=== PATIENT | male | born 1960 | race Caucasian/White ===

== ENCOUNTER 2017-11-25 11:52 | Observation (INO) | payer MEDICARE, SELFPAY ==
[2017-11-25 12:05] VITALS: O2SAT 93
[2017-11-25 12:12] VITALS: BMI 38.3
[2017-11-25 12:13] VITALS: BP 146/86; PULSE 102; RESP 20; TEMP 37.2; O2SAT 93
--- NOTE | 2017-11-25 12:29 | CT_ITS ---
CT chest w con Ordering Physician: Lamin Lynn MD Patient Age: 57 years: Male HISTORY: ITS.REASON: axillary lymphadentis. Cough. Congestion. Left facial swelling anterior to the ear. TECHNIQUE: Helical CT scanning performed the chest following following 50 cc of contrast for the neck CT subsequent 50 cc Isovue 370 for the chest portion of today's study. Sagittal axial coronal CT reconstructions performed on CT workstation. COMPARISON :Recent chest film 05/16/2017 Previously abdomen which included lung bases February 2016 FINDINGS The patient's large size and motility raise arms yield streak artifact which diminishes the resolution The lungs are well expanded and clear with no focal pneumonia. Borderline-mild central airway thickening. Question mild chronic or active bronchitis. . Tiny 3.7 mm partially calcified nodule at the periphery of the right lower lobe granuloma. Not of concern. Mediastinum. Heart is normal in size. Aorta normal caliber. . Hilar regions appear satisfactory. No hilar adenopathy. Grouping of modest size nodes seen just above the left bronchus, left paratracheal region & towards the AP window. None of these appears to be significantly enlarged. One of the larger nodes measuring 12 mm x 7 mm size. Nonspecific at the right peritracheal region there is a 12 mm x 17 mm no x 18 mm length. Generous wall thickness throughout distal esophagus noted. Requires correlation. Any symptoms here. Good appears similar to 2016 study with only suggestion of slight progression... . Upper abdomen demonstrates fatty changes of liver. Cholecystectomy. Vague 12 mm low-density left adrenal nodule most likely nonfunctioning adenoma. Vs volume averaging. Not of concern either case . No significant axillary adenopathy evident by CT. Attention to the left axilla mild gynecomastia bilaterally. Minimal linear scarring anteriorly lingula is stable ====. IMPRESSION: = 1. No acute pulmonary findings . No focal pneumonia. No CHF. 2. Scattered small & moderate nodes at throughout mediastinum. Most likely reactive nodes. Doubtful significance 3.. . Borderline wall thickening of central airways question minor bronchitis. 4. Diffuse wall thickening esophagus most evident distally. .. Similar to 2016 with perhaps very slight progression. Any relevant symptoms here?.Requires correlation 5. Mild bilateral gynecomastia. No significant axillary adenopathy
--- NOTE | 2017-11-25 12:30 | CT_ITS ---
CT soft tissue neck w con Ordering Physician: Lamin Lynn MD Patient Age: 57 years: Male HISTORY: ITS.REASON: ? mastoiditis/neck lymphadenitis TECHNIQUE: Helical CT scanning performed through the neck following 50 cc Isovue-370 cc, with subsequent CT scanning through the chest following additional 50 cc. Sagittal and coronal and axial reconstruction views of the neck performed on CT workstation. COMPARISON :CT IACs/mastoids June 2010 FINDINGS . Benign finding on today's study is edema in the subcutaneous/more superficial fatty tissue most evident just anterior to left ear but then continuing extending just beneath the skin overlying the left parotid and continuing below the left parotid. The parotid glands generous in size bilaterally with the left slightly larger and more lobulated the right. However the prior films are helpful and supportive that this film like extension of parotid tissue upward and just anterior to the ear left greater the right is a long-standing finding feature.; As is a thumb likely extension of parotid tissue anterior overlying the left masseter along the parotid duct. I see no stones along the course of the left parotid gland nor unusual additional inflammation of the parotid gland itself. There may be very slightly more edematous but this is equivocal at best. Majority of the findings seen in the BX cellulitis in the more superficial soft tissues anterior to the ear. Focal swelling most evident here. This overlies the superficial veins Continuing into the neck there are scattered moderate nodes which are similar to previous studies.. These are only slightly more evident on the left with no prominent worrisome or suspicious note or adenopathy. Moderate sized the submandibular glands again noted and stable. Scattered nodes towards the base the neck observed,. However again no worrisome or suspicious individual node. Apices of lungs clear. Medial course of the first ribs yields a slightly tight appearing thoracic inlet Degenerative disc changes and cervical spondylosis most evident at C5-C6 & C6/7. Posterior spurring hypertrophic ridging is seen at both of these levels narrowing the central canal and encroaching upon the foramen typically at C5-C6 to the left. The chronic extensive paranasal sinuses disease or be discussed in the mastoid CT report IMPRESSION--------- 1. Edema of superficial subcutaneous fat layers left face, -most most pronounced immediate anterior to left ear. Diminishing subcutaneous edema been seen extending downward from here, overlying left parotid gland and continuing just inferior to this. 2.... On CT this superficial edema most likely reflects some form of localized superficial Cellulitis Type Process. It appears to yield focal soft tissue swelling here.-Which is most pronounced just anterior to left ear 3 CT mastoids from 2010 very helpful.-. & Confirms that somewhat lobulated contour of generous size left parotid is a stable feature. Specifically Note thumb-like anterior extension of left parotid gland along left parotid duct (overlying left masseter),... As well as superior thumb like extension of left parotid gland just anterior to ear. These are noted as they may be palpable asymmetric features clinically... & Not related to enlarged nodes No prominent lymphadenopathy. No dominant, nor suprative nodes left neck . only question subtle additional enlargement a few of previously long-standing moderate size left nodes throughout the left neck. Overall nodes pattern upper neck very similar to 2010 exam.
--- NOTE | 2017-11-25 12:31 | CT_ITS ---
CT mastoid W/O Ordering Physician: Lamin Lynn MD Patient Age: 57 years: Male HISTORY: ITS.REASON: ? left mastoiditisredness right and left TMJ region. Worse in the left with bulging. Periarticular swelling with redness and tenderness in significant mastoid pain. TECHNIQUE: Helical CT scanning performed through the paranasal sinuses with sagittal and coronal reconstructions on CT workstation. COMPARISON :CT mastoids June 2010 very helpful FINDINGS Previous RIGHT MASTOIDECTOMY.. No significant new findings here versus 2010 2 cm ill-defined Soft tissue density fills the right mastoidectomy defect. Minimal postsurgical bone fragments here-fairly stable feature since 2009. No additional erosive changes nor evidence acute infection..... However fairly Confluent soft tissue density from mastoidectomy defect then continues medially - filling, & opacifying the majority right middle ear.. Expands this region slightly. No ossicles evident. No. Soft tissue density then likely extends this region along course of right eustachian tube region..( Axial Image 34). progression of findings versus 2009 . LEFT MASTOID. Decreased pneumatization of left mastoid with only few residual left mastoid air cells evident. Sclerosis throughout the majority left mastoid region may reflect old mastoiditis. . soft tissue density seen at the attic of left middle air extending into the mastoid antrum. This is seen previously but with slight progression Since 2009. .. The inferior portion of the middle air appears clear.. However I do not ossicles. The bony scutum remains stable-slightly blunted but intact on the left. No fluid levels or prominent acute findings left middle air. No destructive changes ... Left and right before meals appear intact ===== . Extensive Paranasal Sinus Disease again noted and has shown mild progression since 2009: These appear to be chronic changes. No air-fluid levels Right Maxillary sinus.: generous lobulated mucosal thickening most evident towards floor right maxillary sinus Left Maxillary Sinus:. moderate lobulated mucosal thickening most evident towards floor the left. Appears to be a 16 mm polyp polypoid which is developed spur medial wall left maxillary sinus. Ethmoid air cells. Opacification of majority of ethmoid air cells bilaterally again noted is shown progression superior at the posterior left ethmoid air cells Moderate mucosal thickening right sphenoid sinus more so than left. Slight progression here as well Frontal sinus. Well-developed with mild mucosal thickening becoming more pronounced towards junction with ethmoid air cells. Slight overall improvement of left maxillary sinus. No significant air-fluid levels are seen =IMPRESSION == 1. no prominent acute findings involving mastoids nor paranasal sinuses . No destructive nor erosive changes. No air-fluid levels. 2. Right mastoidectomy. Soft tissue density and debris-filled the mastoidectomy defect and continue to the majority of the right middle air. Findings here are similar to 2010. No significant progression. No acute findings.. 3.. Left mastoid. No prominent nor acute findings. Chronic changes again evident with only Slight progression of soft tissue density at the attic of the left middle air and and left mastoid antrum region.. 4.. Pansinusitis. Slight progression since previous studies but no air-fluid levels or acute features
[2017-11-25 12:45] LABS: Basophils % 0.4 % (0.1-2.0); Eosinophils % 0.4 % (0.1-12.0); Hematocrit 50.7 % (42.0-52.0); Hemoglobin 17.2 g/dL (14.1-18.0); Lymphocytes # 0.9 K/mm3 (0.7-4.5); Lymphocytes % 14.3 K/mm3 (10-50); Mean Corpuscular HGB Conc 33.9 g/dL (31.8-35.4); Mean Corpuscular Hemoglobin 32.7 pg (27.0-31.2); Mean Corpuscular Volume 96.7 fl (80-94); Mean Platelet Volume 9.2 fl (7.4-10.4); Monocytes # 0.4 K/mm3 (0.1-1.0); Monocytes % 6.7 % (1.7-9.3); Neutrophils # 4.9 K/mm3 (1.8-7.8); Neutrophils % 78.2 % (37.0-80.0); Platelet Count 197 K/mm3 (142-424); Red Blood Count 5.25 M/mm3 (4.60-6.20); Red Cell Distribution Width 13.1 % (11.5-17.5); White Blood Count 6.3 K/mm3 (4.8-10.8)
[2017-11-25 12:51] LABS: Alanine Aminotransferase 25 U/L (12-78); Albumin Level 3.2 gm/dL (3.4-5.0); Albumin/Globulin Ratio 0.7 (1.1-1.8); Alkaline Phosphatase 74 U/L (46-116); Aspartate Amino Transferase 16 U/L (15-37); Bilirubin,Total 0.7 mg/dL (0.2-1.0); Blood Urea Nitrogen 14 mg/dL (7-18); Calcium 8.9 mg/dL (8.5-10.1); Carbon Dioxide 34 mmol/L (21.0-32.0); Chloride 98 mmol/L (98-107); Creatinine Clearance Estimated 151 mL/min (0-300); Creatinine,Serum 0.95 mg/dL (0.70-1.30); Estimated Glomerular Filt Rate 82 ml/min (>60); GFR (African American) 99 ML/MIN (>60); Globulin 4.3 gm/dl (1.3-3.2); Glucose 132 mg/dL (74-106); Sodium 137 mmol/L (136-145); Total Protein,Serum 7.5 gm/dL (6.4-8.2)
--- NOTE | 2017-11-25 12:53 | PC.NURSE ---
Pt reports sm watery BM. Pt ambulated to BR unassisted with slow steady gait.
--- NOTE | 2017-11-25 13:10 | HMH.PHAVTE ---
[facility] Pharmacy VTE Monitoring - Patient Demographics Admission date: 11/25/17 Report Date: 11/25/17 Time: 13:10 Allergies/Adverse Reactions: Patient Allergies amoxicillin [AMOXICILLIN] Allergy (Severe, Verified 11/25/17 12:49) FACIAL SWELLING Penicillins Allergy (Severe, Verified 11/25/17 12:49) Swelling of Lip/Tongue/Throat ondansetron [From ZOFRAN ( HYDROCHLORIDE)] Allergy (Mild, Verified 11/25/17 12:49) RASH, ITCHING Height: 1.8 m Weight: 124.738 kg - VTE Risk Labs: VTE Related Lab Results Hgb 17.2 g/dL (14.1-18.0) 11/25/17 Unknown Hct 50.7 % (42.0-52.0) 11/25/17 Unknown Plt Count 197 K/mm3 (142-424) 11/25/17 Unknown BUN 14 mg/dL (7-18) 11/25/17 Unknown Creatinine 0.95 mg/dL (0.70-1.30) 11/25/17 Unknown Estimated Creat Clear 151 mL/min (0-300) 11/25/17 Unknown Was VTE Risk Assessment Performed: Yes VTE Score: 4 VTE Risk Level: Low Risk - Prophylaxis VTE Prophylaxis Ordered?: Yes Types of VTE Prophylaxis: TEDS Knee High Location of Applied Device: Bilateral Lower Extremeties
--- NOTE | 2017-11-25 14:37 | PC.NURSE ---
Med reconciliation completed. Meds locked up in drawer.
--- NOTE | 2017-11-25 15:16 | PC.NURSE ---
Pt transported off floor via WC to radiology for CT scans.
--- NOTE | 2017-11-25 15:44 | PC.NURSE ---
pt off unit at this time.
--- NOTE | 2017-11-25 15:48 | PC.NURSE ---
11/25/17 @ 1201 - pt arrived to room 211 via wc accompanied by his . Pt is A&Ox3. VSS. Afebrile. Heart rate reg. Breath sounds /c rhonchi noted throughout. Abd soft and non-tender /c active BS x4 quads. Will continue to monitor current status.
--- NOTE | 2017-11-25 16:57 | PC.NURSE ---
1613 - Received report from Susie Villalta RN. 1625 - Pt returned to room 212 via bed accompanied by post-op nurses. Pt A&Ox3 in NAD. VSS. Afebrile. O2 sats on RA 96%. Heart rate reg. Lungs CTA. Abd soft, non-tender /c active BS x4 quads. Pt taking PO fluids /s difficulty. No c/o N/V. (L)AC IV infusing /s difficulty. No s/s of infiltration. Pt denies and c/o at this time. Will continue to monitor.
--- NOTE | 2017-11-25 17:10 | HMH.HP ---
*Admission Date: 11/25/17 *History of present illness: 57-year-old white male with history of mastoiditis in the past, with chronic morbid obesity, chronic immobility issues and chronic pain syndrome, who presented to my office today with a chief complaint of multiple issues, including severe left ear pain, swelling around his face, diminished urine output and swelling in his arms. He was found to be febrile, tachycardic have significant soft tissue swelling around the left auricle, with left mastoid tenderness and cervical lymphadenitis and significant axillary lymphadenitis. Given his evidence of metabolic stress with tachycardia and reduced urine output he was admitted to hospital for IV antibiotics, CT scanning of the affected area and monitoring of lab studies. [facility] History I have reviewed the patient's past medical history: Yes Medical History: Reports:: Hyperlipidemia, Hypertension, Nephritis (Episode of renal failure requiring hospitalization last summer) Denies:: Cancer, Diabetes Mellitus Type 1, Diabetes Mellitus Type 2, MRSA Other Medical History: Reports: Arthritis Laterality Cases: Bilateral: Arthroscopy Knee, Arthroscopy Shoulder, Myringotomy (Ear Tubes), Tonsillectomy Other Surgeries: Yes: Colonoscopy, EGD Amputation: No Fractures: No - *Social History Educational Level: Completed Grade School Smoking Status: Current every day smoker Tobacco Type: cigarettes # Packs/Day (cigarettes): 1 Alcohol Intake: current Alcohol Intake Frequency:: holidays/special occasions only Occupational Status: disabled Housing: house Household Members: spouse, family - Psychiatric History Expresses thoughts of harming self/others: None Suicide Plan Description: No Plan *Family Hx:: Coronary Artery Disease, Diabetes, Hypertension, Stroke Review of Systems - Review of Systems Review of systems:: unable to obtain, other, pertinent systems reviewed and negative unless documented below - Constitutional Reports body ache(s), Reports chills, Reports excessive sweating, Reports fever(s), Reports headache(s) - Eyes Denies blind spots, Denies blurry vision, Denies change in vision - ENT Denies bleeding gums - *Cardiovascular Denies chest pain, Denies chest pain at rest, Denies chest pain with activity - *Respiratory Reports chest congestion, Reports cough, Denies change in phlegm color - *Gastrointestinal Reports abdominal pain, Reports belching - *Genitourinary Reports difficulty urinating - *Musculoskeletal Reports abnormal walking, Reports joint pain - *Neurologic Reports abnormal walking Meds Home Medications Medication Instructions Recorded Confirmed Type Allopurinol [Allopurinol 300mg 300 mg PO DAILY 11/25/17 11/25/17 History tablet] Budesonide/Formoterol Fumarate 10.2 gm IH BID 11/25/17 11/25/17 History [Symbicort 80-4.5 Mcg Inhaler] Duloxetine HCl [Cymbalta 30mg 30 mg PO BID 11/25/17 11/25/17 History capsule] Lansoprazole [Lansoprazole] 30 mg PO DAILY 11/25/17 11/25/17 History Lisinopril/Hydrochlorothiazide 10 - 12.5 mg PO DAILY 11/25/17 11/25/17 History [Lisinopril-Hctz 10-12.5 mg Tab] Meloxicam 15 mg PO DAILY 11/25/17 11/25/17 History Metoclopramide HCl [Metoclopramide 10 mg PO QID 11/25/17 11/25/17 History 10mg Tablet] Pregabalin [Lyrica 150mg Cap] 150 mg PO TID 11/25/17 11/25/17 History Ropinirole HCl 0.5 mg PO TID 11/25/17 11/25/17 History Sucralfate [Sucralfate 1gm 1 gm PO BID 11/25/17 11/25/17 History Tab] Allergies Allergy/AdvReac Type Severity Reaction Status Date / Time amoxicillin [AMOXICILLIN] Allergy Severe FACIAL Verified 11/25/17 12:49 SWELLING ondansetron Allergy Mild RASH, Verified 11/25/17 12:49 [From ZOFRAN ( ITCHING HYDROCHLORIDE)] Penicillins Allergy Mild Hives Verified 11/25/17 14:22 Exam Vital signs and Labs for Last 24 Hours: Temp Pulse Resp BP Pulse Ox 99.0 F 102 H 20 146/86 93 L 11/25/17 12:13 11/25/17 12:13 0
--- NOTE | 2017-11-25 17:13 | P.HP_ITS ---
*Admission Date: 11/25/17 *History of present illness: 57-year-old white male with history of mastoiditis in the past, with chronic morbid obesity, chronic immobility issues and chronic pain syndrome, who presented to my office today with a chief complaint of multiple issues, including severe left ear pain, swelling around his face, diminished urine output and swelling in his arms. He was found to be febrile, tachycardic have significant soft tissue swelling around the left auricle, with left mastoid tenderness and cervical lymphadenitis and significant axillary lymphadenitis. Given his evidence of metabolic stress with tachycardia and reduced urine output he was admitted to hospital for IV antibiotics, CT scanning of the affected area and monitoring of lab studies. [facility] History I have reviewed the patient's past medical history: Yes Medical History: Reports:: Hyperlipidemia, Hypertension, Nephritis (Episode of renal failure requiring hospitalization last summer) Denies:: Cancer, Diabetes Mellitus Type 1, Diabetes Mellitus Type 2, MRSA Other Medical History: Reports: Arthritis Laterality Cases: Bilateral: Arthroscopy Knee, Arthroscopy Shoulder, Myringotomy (Ear Tubes), Tonsillectomy Other Surgeries: Yes: Colonoscopy, EGD Amputation: No Fractures: No - *Social History Educational Level: Completed Grade School Smoking Status: Current every day smoker Tobacco Type: cigarettes # Packs/Day (cigarettes): 1 Alcohol Intake: current Alcohol Intake Frequency:: holidays/special occasions only Occupational Status: disabled Housing: house Household Members: spouse, family - Psychiatric History Expresses thoughts of harming self/others: None Suicide Plan Description: No Plan *Family Hx:: Coronary Artery Disease, Diabetes, Hypertension, Stroke Review of Systems - Review of Systems Review of systems:: unable to obtain, other, pertinent systems reviewed and negative unless documented below - Constitutional Reports body ache(s), Reports chills, Reports excessive sweating, Reports fever( s), Reports headache(s) - Eyes Denies blind spots, Denies blurry vision, Denies change in vision - ENT Denies bleeding gums - *Cardiovascular Denies chest pain, Denies chest pain at rest, Denies chest pain with activity - *Respiratory Reports chest congestion, Reports cough, Denies change in phlegm color - *Gastrointestinal Reports abdominal pain, Reports belching - *Genitourinary Reports difficulty urinating - *Musculoskeletal Reports abnormal walking, Reports joint pain - *Neurologic Reports abnormal walking Meds Home Medications Medication Instructions Recorded Confirmed Type Allopurinol [Allopurinol 300mg 300 mg PO DAILY 11/25/17 11/25/17 History tablet] Budesonide/Formoterol Fumarate 10.2 gm IH BID 11/25/17 11/25/17 History [Symbicort 80-4.5 Mcg Inhaler] Duloxetine HCl [Cymbalta 30mg 30 mg PO BID 11/25/17 11/25/17 History capsule] Lansoprazole [Lansoprazole] 30 mg PO DAILY 11/25/17 11/25/17 History Lisinopril/Hydrochlorothiazide 10 - 12.5 mg PO DAILY 11/25/17 11/25/17 History [Lisinopril-Hctz 10-12.5 mg Tab] Meloxicam 15 mg PO DAILY 11/25/17 11/25/17 History Metoclopramide HCl [Metoclopramide 10 mg PO QID 11/25/17 11/25/17 History 10mg Tablet] Pregabalin [Lyrica 150mg Cap] 150 mg PO TID 11/25/17 11/25/17 History Ropinirole HCl 0.5 mg PO TID 11/25/17 11/25/17 History Sucralfate [Sucralfate 1gm 1 gm PO BID 11/25/17 11/25/17 History
--- NOTE | 2017-11-25 18:59 | PC.NURSE ---
Report given to Yenni Talbert RN
[2017-11-25 20:00] VITALS: BP 140/97; PULSE 92; RESP 20; TEMP 36.9; O2SAT 94
--- NOTE | 2017-11-26 03:57 | PC.NURSE ---
Laying in bed resting, Has complained of headache this shift. Has had tylenol 2 x. Left side of face is slightly swollen around ear. No change from Beginning of shift. Denies any trouble breathing. Lungs have some Rhonchi bilat. Resp even and nonlabored. Has been up to restroom several times. Has Tolerated well. IV is patent, denies any needs at this time. Bed locked in low position, side rails up x 2, call light within reach. Encouraged to call out if needs.
[2017-11-26 04:00] VITALS: BP 130/95; PULSE 80; RESP 20; TEMP 36.6; O2SAT 95
[2017-11-26 07:35] VITALS: BP 140/91; PULSE 80; RESP 22; TEMP 37.8; O2SAT 95
--- NOTE | 2017-11-26 07:35 | PC.NURSE ---
Report received from Yenni Talbert RN.
--- NOTE | 2017-11-26 07:51 | HMH.NBDC ---
[place] Subjective Data - Subjective Height: 5 ft 11 in Weight: 277 lb 3 oz [facility] DC Diagnosis - Discharge Diagnosis Patient Problems: All Active Problems Lymphadenitis (Acute) Acute febrile illness (Acute)
--- NOTE | 2017-11-26 07:54 | P.DS_ITS ---
[place] Subjective Data - Subjective Height: 5 ft 11 in Weight: 277 lb 3 oz [facility] DC Diagnosis - Discharge Diagnosis Patient Problems: All Active Problems Lymphadenitis (Acute) Acute febrile illness (Acute)
--- NOTE | 2017-11-26 08:55 | HMH.ACPN2 ---
Internal Medicine - PN: Subj *Date: 11/26/17 *Time: 07:45 Interval history: Patient is sleeping deeply this morning and does not want to wake up to participate in rounds. Once awake, he denies any pain. Continues to have some tenderness around left ear. States I don't like the food. Otherwise no complaints. Alert and oriented x3. Rate and rhythm regular. Mild swelling and erythema around left ear extending approx 2 cm. Moderately tender, + LAD left cervical, improved. LS clear and equal Exam Vital signs and Labs for Last 24 Hours: Temp Pulse Resp BP Pulse Ox 100.1 F H 80 22 140/91 95 11/26/17 07:35 11/26/17 07:35 11/26/17 07:35 11/26/17 07:35 11/26/17 07:35 Laboratory Results - last 24 hr 11/25/17 : WBC 6.3, RBC 5.25, Hgb 17.2, Hct 50.7, MCV 96.7 H, MCH 32.7 H, MCHC 33.9, RDW 13.1, Plt Count 197, MPV 9.2, Neut % (Auto) 78.2, Lymph % (Auto) 14.3, [place] % (Auto) 6.7, Eos % (Auto) 0.4, Baso % (Auto) 0.4, Neut # (Auto) 4.9, Lymph # (Auto) 0.9, [place] # (Auto) 0.4, Eos # (Auto) 0.0, Baso # (Auto) 0.0 11/25/17 : Sodium 137, Potassium 4.0, Chloride 98, Carbon Dioxide 34 H, Anion Gap 9.0, BUN 14, Creatinine 0.95, Estimated Creat Clear 151, Estimated GFR 82, Est GFR ( Amer) 99, Glucose 132 H, Calcium 8.9, Total Bilirubin 0.7, AST 16, ALT 25, Alkaline Phosphatase 74, Total Protein 7.5, Albumin 3.2 L, Globulin 4.3 H, Albumin/Globulin Ratio 0.7 L I & O for Last 24 hours: Intake & Output 11/23/17 11/24/17 11/25/17 11/26/17 11:59 11:59 11:59 11:59 Intake Total 1703 / 1703 Output Total 600 / 600 Balance 1103 / 1103 Weight 277 lb 3 oz Assessment and Plan (1) Lymphadenitis Current visit: Yes Status: Acute Category: Medical Code(s): I88.9 - Nonspecific lymphadenitis, unspecified (2) Acute febrile illness Current visit: Yes Status: Acute Category: Medical Code(s): R50.9 - Fever, unspecified - Assessment and plan all Dx Assessment and Plan for all problems:: BC negative to date. CT showed soft tissue swelling, no acute invasion of nay structures. Apply warm compresses TID. Continue IV antibiotics. Patient needs to get OOB to chair today.
--- NOTE | 2017-11-26 09:00 | P.PN_ITS ---
Internal Medicine - PN: Subj *Date: 11/26/17 *Time: 07:45 Interval history: Patient is sleeping deeply this morning and does not want to wake up to participate in rounds. Once awake, he denies any pain. Continues to have some tenderness around left ear. States I don't like the food. Otherwise no complaints. Alert and oriented x3. Rate and rhythm regular. Mild swelling and erythema around left ear extending approx 2 cm. Moderately tender, + LAD left cervical, improved. LS clear and equal Exam Vital signs and Labs for Last 24 Hours: Temp Pulse Resp BP Pulse Ox 100.1 F H 80 22 140/91 95 11/26/17 07:35 11/26/17 07:35 11/26/17 07:35 11/26/17 07:35 11/26/17 07:35 Laboratory Results - last 24 hr 11/25/17 : WBC 6.3, RBC 5.25, Hgb 17.2, Hct 50.7, MCV 96.7 H, MCH 32.7 H, MCHC 33.9, RDW 13.1, Plt Count 197, MPV 9.2, Neut % (Auto) 78.2, Lymph % (Auto) 14.3 , [place] % (Auto) 6.7, Eos % (Auto) 0.4, Baso % (Auto) 0.4, Neut # (Auto) 4.9, Lymph # (Auto) 0.9, [place] # (Auto) 0.4, Eos # (Auto) 0.0, Baso # (Auto) 0.0 11/25/17 : Sodium 137, Potassium 4.0, Chloride 98, Carbon Dioxide 34 H, Anion Gap 9.0, BUN 14, Creatinine 0.95, Estimated Creat Clear 151, Estimated GFR 82, Est GFR ( Amer) 99, Glucose 132 H, Calcium 8.9, Total Bilirubin 0.7, AST 16, ALT 25, Alkaline Phosphatase 74, Total Protein 7.5, Albumin 3.2 L, Globulin 4.3 H, Albumin/Globulin Ratio 0.7 L I & O for Last 24 hours: Intake & Output 11/23/17 11/24/17 11/25/17 11/26/17 11:59 11:59 11:59 11:59 Intake Total 1703 / 1703 Output Total 600 / 600 Balance 1103 / 1103 Weight 277 lb 3 oz Assessment and Plan (1) Lymphadenitis Current visit: Yes Status: Acute Category: Medical Code(s): I88.9 - Nonspecific lymphadenitis, unspecified (2) Acute febrile illness Current visit: Yes Status: Acute Category: Medical Code(s): R50.9 - Fever , unspecified - Assessment and plan all Dx Assessment and Plan for all problems:: BC negative to date. CT showed soft tissue swelling, no acute invasion of nay structures. Apply warm compresses TID. Continue IV antibiotics. Patient needs to get OOB to chair today.
[2017-11-26 11:28] LABS: POC Glucose,Bedside 101 mg/dL (70-110)
[2017-11-26 11:30] LABS: POC Glucose,Bedside 107 mg/dL (70-110)
[2017-11-26 16:00] VITALS: BP 137/92; PULSE 83; RESP 18; TEMP 36.8; O2SAT 96
--- NOTE | 2017-11-26 16:28 | PC.NURSE ---
Pt is A&Ox3 in NAD this shift. VSS. Afebrile. Firm area to (L) side of face near ear. Warm moist compresses applied intermittently to this area this shift. Heart rate reg. Lungs /c exp rhonchi noted throughout all reina. Abd soft round and nontender /c active BS x4 quads. IV (R) AC infusing 0.45%NaCl @ 100ml/hr /s difficulty. No s/s of infiltration. Refuses NUZHAT hose to BLE. Will continue to monitor pt's status.
[2017-11-26 16:50] LABS: POC Glucose,Bedside 99 mg/dL (70-110)
[2017-11-26 20:00] VITALS: BP 154/101; PULSE 80; RESP 20; TEMP 36.7; O2SAT 97
[2017-11-26 20:30] VITALS: O2SAT 97
[2017-11-26 21:23] LABS: POC Glucose,Bedside 104 mg/dL (70-110)
[2017-11-27] VITALS: BP 148/78; PULSE 78; O2SAT 95
--- NOTE | 2017-11-27 01:06 | PC.NURSE ---
PT RESTING IN BED AT THIS TIME. PT C/O UPON START OF SHIFT OF SOA. PT WAS ASSESSED AND WAS NOTED TO HAVE RHONCHI AND WHEEZING T/O LUNG TREVIÑO. O2 2L NC WAS PLACED ON PT. O2 SAT WAS 96%. PT WAS ALSO NOTED TO HAVE B/P OF 154/101 AND REPEAT OF 154/110. PT STATED THAT HE TAKES B/P MEDICATION AT HOME. UPON REVIEW OF HOME MEDICATIONS. IT WAS NOTED THAT PT TAKES LISINOPRIL/HYDROCHLOROTHIAZIDE. MD EVAPORATOR WAS NOTIFIED OF PT CONDITION. NO NEW ORDERS. V/S WERE OBTAINED AT 0000 OF 148/86, 78 P, 95%. PT IS CURRENTLY ON ROOM AIR. STATED THAT HE NO LONGER IS SOA. LUNGS NOTED TO HAVE RHONCHI. NO WHEEZING NOTED AT THIS TIME. PT STATED THAT HE WOULD LIKE TO HAVE HIS HOME MEDICATIONS THAT HE TAKES FOR HIS STOMACH AND ABDOMEN. WILL NOTIFY MD IN AM. NO OTHER CONCERNS AT THIS TIME. WILL CONTINUE TO MONITOR.
[2017-11-27 04:00] VITALS: BP 146/98; PULSE 75; RESP 20; TEMP 36.8; O2SAT 94
[2017-11-27 06:28] LABS: POC Glucose,Bedside 96 mg/dL (70-110)
[2017-11-27 07:33] VITALS: BP 143/96; PULSE 77; RESP 20; TEMP 36.8; O2SAT 95
--- NOTE | 2017-11-27 07:37 | PC.NURSE ---
PT REPORT HAND OFF TO MARYA GIRON
--- NOTE | 2017-11-27 08:11 | HMH.DCSUM ---
General - General Admission date: 11/25/17 Discharge date: 11/27/17 HPI HPI: 57-year-old white male with history of mastoiditis in the past, with chronic morbid obesity, chronic immobility issues and chronic pain syndrome, who presented to my office today with a chief complaint of multiple issues, including severe left ear pain, swelling around his face, diminished urine output and swelling in his arms. He was found to be febrile, tachycardic have significant soft tissue swelling around the left auricle, with left mastoid tenderness and cervical lymphadenitis and significant axillary lymphadenitis. Given his evidence of metabolic stress with tachycardia and reduced urine output he was admitted to hospital for IV antibiotics, CT scanning of the affected area and monitoring of lab studies. Objective Vital signs: Temp Pulse Resp BP Pulse Ox 98.3 F 77 20 143/96 95 11/27/17 07:33 11/27/17 07:33 11/27/17 07:33 11/27/17 07:33 11/27/17 07:33 Narrative: This morning patient is awake, alert, sitting up eating breakfast. Lungs have some scattered rhonchi but at his baseline because of his COPD. Facial swelling is much improved, continues to have a tender ridge of induration just anterior to the left auricle, but overall the area is much less swollen, area is smaller. Axillary lymphadenitis is almost resolved. Abdomen soft, heart rate regular. Hospital Course Hospital Course: She was admitted, placed on broad-spectrum IV antibiotics. CT scan of head, soft tissue neck and chest were done because of his significant lymphadenitis but these proved to have basically soft tissue swelling with no actual lymphadenitis. No abscess. No worrisome lesions on his chest. Patient responded very well to IV antibiotics. This morning he had improved. Please see today's exam note. Plan will be to discharge home on antibiotics, steroid pack, close follow-up in my office. Results Labs on day of discharge: Labs from last 24 hours 11/27/17 11/26/17 11/26/17 06:19 20:37 16:40 POC Glucose 96 104 99 11/26/17 11/26/17 11:16 05:59 POC Glucose 107 101 DS: Diagnosis - Discharge Diagnosis (1) Lymphadenitis Status: Acute (2) Acute febrile illness Status: Acute Discharge Plan - Patient Discharge Instructions ACTIVITY: Continue current activity DIET: continue same diet - Follow up Plan Follow up with: Lamin Lynn MD [Primary Care Provider] - 11/30/17 Disposition: Home, Self-Fci Medications: Home Medications Medication Instructions Recorded Confirmed Type Allopurinol [Allopurinol 300mg 300 mg PO DAILY 11/25/17 11/25/17 History tablet] Duloxetine HCl [Cymbalta 30mg 30 mg PO BID 11/25/17 11/25/17 History capsule] Lansoprazole [Lansoprazole] 30 mg PO DAILY 11/25/17 11/25/17 History Lisinopril/Hydrochlorothiazide 10 - 12.5 mg PO DAILY 11/25/17 11/25/17 History [Lisinopril-Hctz 10-12.5 mg Tab] Meloxicam 15 mg PO DAILY 11/25/17 11/25/17 History Metoclopramide HCl [Metoclopramide 10 mg PO ACHS 11/25/17 11/26/17 History 10mg Tablet] Pregabalin [Lyrica 150mg Cap] 150 mg PO TID 11/25/17 11/25/17 History Ropinirole HCl 0.5 mg PO TID 11/25/17 11/25/17 History Sucralfate [Sucralfate 1gm 1 gm PO BID 11/25/17 11/25/17 History Tab] Furosemide [Lasix 20mg tab] 20 mg PO DAILYP PRN 11/26/17 11/26/17 History Simvastatin [Zocor] 40 mg PO HS 11/26/17 11/26/17 History Prescriptions/Medication Reconciliation: New Clindamycin HCl [Clindamycin 300mg Cap] 300 mg PO TID #21 cap predniSONE [Deltasone 20mg tablet] 20 mg PO DAILY 7 Days #7 tab Cefdinir [Omnicef 300mg Capsule] 300 mg PO BID #20 cap Continue Duloxetine HCl [Cymbalta 30mg capsule] 30 mg PO BID Ropinirole HCl 0.5 mg PO TID Lisinopril/Hydrochlorothiazide [Lisinopril-Hctz 10-12.5 mg Tab] 10 - 12.5 mg PO DAILY Metoclopramide HCl [Metoclopramide 10mg Tablet] 10 mg PO ACHS
--- NOTE | 2017-11-27 08:14 | P.DS_ITS ---
General - General Admission date: 11/25/17 Discharge date: 11/27/17 HPI HPI: 57-year-old white male with history of mastoiditis in the past, with chronic morbid obesity, chronic immobility issues and chronic pain syndrome, who presented to my office today with a chief complaint of multiple issues, including severe left ear pain, swelling around his face, diminished urine output and swelling in his arms. He was found to be febrile, tachycardic have significant soft tissue swelling around the left auricle, with left mastoid tenderness and cervical lymphadenitis and significant axillary lymphadenitis. Given his evidence of metabolic stress with tachycardia and reduced urine output he was admitted to hospital for IV antibiotics, CT scanning of the affected area and monitoring of lab studies. Objective Vital signs: Temp Pulse Resp BP Pulse Ox 98.3 F 77 20 143/96 95 11/27/17 07:33 11/27/17 07:33 11/27/17 07:33 11/27/17 07:33 11/27/17 07:33 Narrative: This morning patient is awake, alert, sitting up eating breakfast. Lungs have some scattered rhonchi but at his baseline because of his COPD. Facial swelling is much improved, continues to have a tender ridge of induration just anterior to the left auricle, but overall the area is much less swollen, area is smaller. Axillary lymphadenitis is almost resolved. Abdomen soft, heart rate regular. Hospital Course Hospital Course: She was admitted, placed on broad-spectrum IV antibiotics. CT scan of head, soft tissue neck and chest were done because of his significant lymphadenitis but these proved to have basically soft tissue swelling with no actual lymphadenitis. No abscess. No worrisome lesions on his chest. Patient responded very well to IV antibiotics. This morning he had improved. Please see today's exam note. Plan will be to discharge home on antibiotics, steroid pack, close follow-up in my office. Results Labs on day of discharge: Labs from last 24 hours 11/27/17 11/26/17 11/26/17 06:19 20:37 16:40 POC Glucose 96 104 99 11/26/17 11/26/17 11:16 05:59 POC Glucose 107 101 DS: Diagnosis - Discharge Diagnosis (1) Lymphadenitis Status: Acute (2) Acute febrile illness Status: Acute Discharge Plan - Patient Discharge Instructions ACTIVITY: Continue current activity DIET: continue same diet - Follow up Plan Follow up with: Lamin Lynn MD [Primary Care Provider] - 11/30/17 Disposition: Home, Self-Retirement Medications: Home Medications Medication Instructions Recorded Confirmed Type Allopurinol [Allopurinol 300mg 300 mg PO DAILY 11/25/17 11/25/17 History tablet] Duloxetine HCl [Cymbalta 30mg 30 mg PO BID 11/25/17 11/25/17 History capsule] Lansoprazole [Lansoprazole] 30 mg PO DAILY 11/25/17 11/25/17 History Lisinopril/Hydrochlorothiazide 10 - 12.5 mg PO DAILY 11/25/17 11/25/17 History [Lisinopril-Hctz 10-12.5 mg Tab] Meloxicam 15 mg PO DAILY 11/25/17 11/25/17 History Metoclopramide HCl [Metoclopramide 10 mg PO ACHS 11/25/17 11/26/17 History 10mg Tablet] Pregabalin [Lyrica 150mg Cap] 150 mg PO TID 11/25/17 11/25/17 History Ropinirole HCl 0.5 mg PO TID 11/25/17 11/25/17 History Sucralfate [Sucralfate 1gm 1 gm PO BID 11/25/17 11/25/17 History Tab]
[2017-12-05 14:58] LABS: POC Glucose,Bedside 111 mg/dL (70-110)
[2017-12-05 14:59] LABS: POC Glucose,Bedside 114 mg/dL (70-110)
== END 2017-11-27 10:49 | disposition home or self-care (01) ==
PROVIDERS: Admitting Provider Internal Medicine Adolescent Medicine; PCP Internal Medicine Adolescent Medicine; Visit Provider Internal Medicine Adolescent Medicine
DX: I10 Essential (primary) hypertension; Z72.0 Tobacco use; L04.0 Acute lymphadenitis of face, head and neck; H92.02 Otalgia, left ear; M54.2 Cervicalgia; E66.01 Morbid (severe) obesity due to excess calories; Z68.39 Body mass index [BMI] 39.0-39.9, adult; Z79.899 Other long term (current) drug therapy
CPT/HCPCS: 70486; 70491; 71260; 80053; 82962; 85025; 93005; G0378; Q9967

== ENCOUNTER → 2018-01-06 12:16 | Outpatient (CLI) | payer MEDICARE, SELFPAY ==
--- NOTE | 2018-01-06 12:28 | XR_ITS ---
XR knee RT 3V COMPARISON: None HISTORY: Right knee pain TECHNIQUE: AP lateral and oblique views FINDINGS: There is mild joint space narrowing medially. There is spurring of the tibial spines. There is moderate narrowing of patellofemoral space. There is spurring of the lateral femoral condyle as well. There is no effusion I see no fracture or loose body. IMPRESSION: Mild to moderate degenerative changes as noted
== END ==
PROVIDERS: PCP Internal Medicine Adolescent Medicine; Visit Provider Internal Medicine Adolescent Medicine
DX: M25.561 Pain in right knee (principal)
CPT/HCPCS: 73562

== ENCOUNTER → 2018-05-05 10:40 | Outpatient (CLI) | payer MEDICARE, SELFPAY ==
[2018-05-05 10:58] LABS: Basophils % 0.5 % (0.1-2.0); Eosinophils # 0.4 K/mm3 (0.0-0.4); Eosinophils % 4.8 % (0.1-12.0); Hematocrit 53.4 % (42.0-52.0); Hemoglobin 17.3 g/dL (14.1-18.0); Lymphocytes # 2.1 K/mm3 (0.7-4.5); Lymphocytes % 25.6 K/mm3 (10-50); Mean Corpuscular HGB Conc 32.4 g/dL (31.8-35.4); Mean Corpuscular Hemoglobin 32.7 pg (27.0-31.2); Mean Platelet Volume 8.3 fl (7.4-10.4); Monocytes # 0.5 K/mm3 (0.1-1.0); Monocytes % 5.5 % (1.7-9.3); Neutrophils # 5.2 K/mm3 (1.8-7.8); Neutrophils % 63.6 % (37.0-80.0); Platelet Count 247 K/mm3 (142-424); Red Blood Count 5.28 M/mm3 (4.60-6.20); Red Cell Distribution Width 14.1 % (11.5-17.5); White Blood Count 8.2 K/mm3 (4.8-10.8)
[2018-05-05 11:38] LABS: Alanine Aminotransferase 22 U/L (12-78); Albumin Level 3.3 gm/dL (3.4-5.0); Albumin/Globulin Ratio 0.9 (1.1-1.8); Alkaline Phosphatase 89 U/L (46-116); Anion Gap 8.1 mEq/L (5-15); Aspartate Amino Transferase 10 U/L (15-37); Bilirubin,Total 0.6 mg/dL (0.2-1.0); Blood Urea Nitrogen 16 mg/dL (7-18); Calcium 8.9 mg/dL (8.5-10.1); Carbon Dioxide 33 mmol/L (21.0-32.0); Chloride 105 mmol/L (98-107); Chol/HDL Ratio 5.7 (1-3.5); Cholesterol 216 mg/dL (140-200); Creatinine,Serum 0.91 mg/dL (0.70-1.30); Estimated Glomerular Filt Rate 86 ml/min (>60); Free Thyroxine Index 3.1 ug/dL (5.93-13.13); GFR (African American) 104 ML/MIN (>60); Globulin 3.5 gm/dl (1.3-3.2); Glucose 118 mg/dL (74-106); HDL Cholesterol 38 mg/dL (27-67); LDL Cholesterol 128 mg/dL (0-130); Magnesium 1.8 mg/dL (1.4-2.2); Potassium 4.1 mmoL/L (3.5-5.1); Sodium 142 mmol/L (136-145); T4 (Thyroxine) 8.8 ug/dl (4.7-13.3); Total Protein,Serum 6.8 gm/dL (6.4-8.2); Triglycerides 251 mg/dL (30-200); Triiodothryronine (T3) Uptake 35 % (31-39); VLDL Cholesterol 50 mg/dL (0-40)
[2018-05-07 16:50] LABS: Vitamin B12 331 pg/mL (232-1245); Vitamin D 25 Hydroxy 17.3 ng/mL (30.0-100.0)
== END ==
PROVIDERS: Visit Provider Internal Medicine Adolescent Medicine
DX: E78.5 Hyperlipidemia, unspecified (principal); I49.9 Cardiac arrhythmia, unspecified; G60.9 Hereditary and idiopathic neuropathy, unspecified; R25.1 Tremor, unspecified
CPT/HCPCS: 36415; 80053; 80061; 82607; 82652; 83735; 84436; 84443; 84479; 85025

== ENCOUNTER 2018-12-31 19:51 | Observation (INO) ==
[2018-12-31 20:10] LABS: Basophils % 0.4 % (0.1-2.0); Eosinophils # 0.4 K/mm3 (0.0-0.4); Eosinophils % 4.2 % (0.1-12.0); Hematocrit 51.5 % (42.0-52.0); Hemoglobin 16.8 g/dL (14.1-18.0); Lymphocytes # 3.1 K/mm3 (0.7-4.5); Lymphocytes % 29.8 % (10-50); Mean Corpuscular HGB Conc 32.6 g/dL (31.8-35.4); Mean Corpuscular Hemoglobin 33.4 pg (27.0-31.2); Mean Corpuscular Volume 102.5 fl (80-94); Mean Platelet Volume 8.4 fl (7.4-10.4); Monocytes # 0.5 K/mm3 (0.1-1.0); Monocytes % 5.1 % (1.7-9.3); Neutrophils # 6.2 K/mm3 (1.8-7.8); Neutrophils % 60.5 % (37.0-80.0); Platelet Count 256 K/mm3 (142-424); Red Blood Count 5.03 M/mm3 (4.60-6.20); Red Cell Distribution Width 14.2 % (11.5-17.5); White Blood Count 10.2 K/mm3 (4.8-10.8)
--- NOTE | 2018-12-31 20:25 | Emergency Department Note ---
ED Disposition Clinical Impression: Obesity (BMI 30-39.9) Rib fracture Qualifiers: Encounter type: initial encounter Rib fracture type: single rib Fracture type: closed Laterality: right Qualified Code(s): S22.31XA - Fracture of one rib, right side, initial encounter for closed fracture Fall Qualifiers: Encounter type: initial encounter Qualified Code(s): W19.XXXA - Unspecified fall, initial encounter Blunt abdominal trauma Qualifiers: Encounter type: initial encounter Qualified Code(s): S39.91XA - Unspecified injury of abdomen, initial encounter Elevated ETOH level Qualifiers: Blood alcohol level: 80-99 mg/100 ml Qualified Code(s): Y90.4 - Blood alcohol level of 80-99 mg/100 ml Disposition: Admitted as Observation Condition on Discharge: Fair Referrals: Provider,Referral, [Referring] - - Critical Care Critical Care Time: No Attestation: On 12/31/18, the high probability of a clinically significant, sudden or life threatening deterioration of the following system(s) required my full and direct attention, intervention and personal management. The time I documented below is in addition to time spent performing reported procedures but includes the following listed in this critical care notation. Medical Decision Making - Medical Records Medical records reviewed: Yes: I reviewed the patient's medical records. - Michael Inquiry Pt receiving controlled substance: No Vital Signs: 12/31/18 19:51 12/31/18 20:19 12/31/18 20:54 Temperature 98.9 F Temperature Source Oral Pulse Rate [Right Brachial] 78 82 86 Respiratory Rate 16 20 15 Blood Pressure [Right Arm] 108/72 L 93/63 L 118/78 Blood Pressure Mean [Right Arm] 84 73 91 Blood Pressure Source [Right Arm] Automatic Cuff Blood Pressure Position [Right Arm] Supine 02 Sat by Pulse Oximetry 96 97 96 Oxygen Delivery Method Room Air 12/31/18 21:58 12/31/18 22:59 12/31/18 23:24 Temperature Temperature Source Pulse Rate [Right Brachial] 91 H 84 104 H Respiratory Rate 18 15 Blood Pressure [Right Arm] 111/86 123/80 113/75 Blood Pressure Mean [Right Arm] 94 94 87 Blood Pressure Source [Right Arm] Automatic Cuff Blood Pressure Position [Right Arm] Supine 02 Sat by Pulse Oximetry 97 92 L 97 Oxygen Delivery Method Room Air - Lab Data Lab results reviewed: Yes: I reviewed the patient's lab results. Lab Results 12/31/18 20:00: WBC 10.2, RBC 5.03, Hgb 16.8, Hct 51.5, MCV 102.5 H, MCH 33.4 H, MCHC 32.6, RDW 14.2, Plt Count 256, MPV 8.4, Neut % (Auto) 60.5, Lymph % (Auto) 29.8, [place] % (Auto) 5.1, Eos % (Auto) 4.2, Baso % (Auto) 0.4, Neut # (Auto) 6.2, Lymph # (Auto) 3.1, [place] # (Auto) 0.5, Eos # (Auto) 0.4, Baso # (Auto) 0.0 12/31/18 20:45: Sodium 139, Potassium 3.4 L, Chloride 101, Carbon Dioxide 27, Anion Gap 14.4, BUN 15, Creatinine 0.94, Estimated Creat Clear 143, Estimated GFR 82, Est GFR ( Amer) 100, Glucose 98, Calcium 9.1, Total Bilirubin 0.2, AST 13 L, ALT 21, Alkaline Phosphatase 86, Total Protein 7.1, Albumin 3.2 L , Globulin 3.9 H, Albumin/Globulin Ratio 0.8 L, Amylase 57, Lipase 246, Plasma/Serum Alcohol 88 Result diagrams: 12/31/18 20:00 12/31/18 20:45 Orders (Tests/Meds): ED MEDICATIONS Generic Name Dose Route Start Last Admin Trade Name Freq PRN Reason Stop Dose Admin Sodium Chloride 10 ml 12/31/18 19:58 Saline Flush 10ml Syringe IV 01/30/19 19:57 NEEDED PRN Maintain IV Site Discontinued Medications Generic Name Dose Route Start Last Admin Trade Name Freq PRN Reason Stop Dose Admin Ketorolac Tromethamine 30 mg 12/31/18 20:03 12/31/18 20:05 Toradol 30mg/Ml Vial IV 12/31/18 20:04 30 mg ONCE ONE Administration Methylprednisolone Sodium Succinate 125 mg 12/31/18 22:08 12/31/18 22:08 Solu-Medrol 125mg/2ml Vial IV 12/31/18 22:09 125 mg ONCE ONE Administration Morphine Sulfate 4 mg 12/31/18 22:54 12/31/18 22:58 Morphine 4mg/Ml Syringe IV 12/31/18 22:55 4 mg ONCE ONE Administration Ondansetron HCl 4 mg 12/31/18 22:54 12/31/18 22:59 Zofran 4mg/2ml Vial IV 12/31/18 22:55 4 mg ONCE ONE Administration ORDERS Category Date Time Status CT abdomen pelvis wo con Stat Cat Scan 12/31/18 19:[address] cervical spine wo con Stat Cat Scan 12/31/18 19:[address] chest wo con Stat Cat Scan 12/31/18 19:[address] head/brain wo con Stat Cat Scan 12/31/18 19:58 Taken XR chest AP Stat Exams 12/31/18 19:58 Taken XR pelvis 1-2V Stat Exams 12/31/18 19:58 Taken - Radiology Data #1 Image(s): Chest, Pelvis Image Reviewed: Yes I reviewed the patient's radiology image Preliminary Findings: No Fracture Seen - CT Data CT Scan: Head, C-Spine, Abdomen, Pelvis, Chest Time Received: 23:[address] Reviewed: Yes: I have viewed the radiologist's interpretation Preliminary Findings: Abnormal (6th rib fx ) Fall HPI - General Chief Complaint: Fall Stated Complaint: fall Time Seen by Provider: 12/31/18 20:00 Mode of Arrival: EMS Source of Information: Patient, Medical Record Limitations: No Limitations Description of Symptoms (Recalled from ER Triage Doc. by RN): Pt reports he was letting the dogs out and lost his balance and fell off approx 3 foot porch. Pt reports pain in the head, right side, right sided abdomen, and right sided chest pain. Pt denies LOC. - History of Present Illness HPI Narrative: trip injury and fell off porch with rt sided chest and abd pain with no loc - MD complaint: fall Onset (ago): hour(s) Fall from: from height (distance) (3 feet) Fall witnessed: no Place fall occurred: home Loss of consciousness: none Prolonged down time: no Context: tripped/slipped Location of injury: head, neck, chest, abdomen Severity: moderate Associated symptoms (after fall): denies - Related Data Home Medications Medication Instructions Recorded Confirmed Allopurinol [Allopurinol 300mg 300 mg PO DAILY 11/25/17 12/31/18 tablet] Duloxetine HCl [Cymbalta 30mg 30 mg PO BID 11/25/17 12/31/18 capsule] Lansoprazole 30 mg PO DAILY 11/25/17 12/31/18 Lisinopril/Hydrochlorothiazide 10 - 12.5 mg PO DAILY 11/25/17 12/31/18 [Lisinopril-Hctz 10-12.5 mg Tab] Meloxicam 15 mg PO DAILY 11/25/17 12/31/18 Metoclopramide HCl [Metoclopramide 10 mg PO ACHS 11/25/17 12/31/18 10mg Tablet] Pregabalin [Lyrica 150mg Cap] 150 mg PO TID 11/25/17 12/31/18 Ropinirole HCl 0.5 mg PO TID 11/25/17 12/31/18 Sucralfate [Sucralfate 1gm 1 gm PO BID 11/25/17 12/31/18 Tab] Allergies Allergy/AdvReac Type Severity Reaction Status Date / Time amoxicillin [AMOXICILLIN] Allergy Severe FACIAL Verified 11/25/17 12:49 SWELLING ondansetron Allergy Mild RASH, Verified 11/25/17 12:49 [From ZOFRAN ( ITCHING HYDROCHLORIDE)] Penicillins Allergy Mild Hives Verified 11/25/17 14:22 [facility] History - Hepatitis A Screen Drug use history?: No High risk sexual behaviors?: No History of sexually transmitted infection?: No Currently employed?: No Childcare worker?: No Do you have indoor plumbing?: Yes Do you have electricity?: Yes Attestation statement:: This patient has been screened for Hepatitis A risk factors. I have reviewed the patient's past medical history: Yes Medical History: Reports:: Hyperlipidemia, Hypertension, Nephritis (Episode of renal failure requiring hospitalization last summer) Denies:: Cancer, Diabetes Mellitus Type 1, Diabetes Mellitus Type 2, MRSA Other Medical History: Reports: Arthritis Laterality Cases: Bilateral: Arthroscopy Knee, Arthroscopy Shoulder, Myringotomy (Ear Tubes), Tonsillectomy Other Surgeries: Yes: Colonoscopy, EGD Amputation: No Fractures: No - Social History Smoking Status: Current every day smoker Tobacco Type: cigarettes # Packs/Day (cigarettes): 1 Alcohol Intake: current Alcohol Intake Frequency:: holidays/special occasions only Occupational Status: disabled Housing: house Household Members: spouse, family - Psychiatric History Expresses thoughts of harming self/others: None Suicide Plan Description: No Plan Family Hx:: Coronary Artery Disease, Diabetes, Hypertension, Stroke ROS Obtained: Yes All systems reviewed & no additional complaints - Constitutional Constitutional: Denies fever(s) - Eyes Eyes: Denies change in vision - ENT Ears, Nose, Mouth, and Throat: Denies sore throat - Cardiovascular Cardiovascular: Reports chest pain, Denies dyspnea - Respiratory Respiratory: No cough - Gastrointestinal Gastrointestingal: Reports: abdominal pain, nausea - Genitourinary Male Genitourinary: Denies hematuria - Musculoskeletal Musculoskeletal: Reports limited range of motion, Reports neck pain - Integumentary/Breasts Skin/Breast: Denies rash - Neurologic Neurologic: Denies headache(s), Denies seizure-like activity Physical Exam - General General appearance: alert, obese - Head Head exam: normocephalic - Eye Eye exam: Present: PERRL, EOMI - ENT ENT exam: Present: mucous membranes dry - Neck Neck exam: Present: trachea midline. Absent: full ROM - Chest Chest inspection: Present: tenderness - Respiratory Respiratory exam: Present: other (dec bs bilat ). Absent: respiratory distress - Cardiovascular Cardiovascular exam: Present: regular rate, systolic murmur - Abdominal Exam Abdominal exam: Present: soft, tenderness Abdominal tenderness: Present: RUQ, moderate - Extremities Exam Extremities exam: Absent: pedal edema, calf tenderness - Back Exam Back exam: Present: paraspinal tenderness - Neurological Exam Neurological exam: Present: alert, oriented X3, CN II-XII intact, other (gcs=15). Absent: motor sensory deficit - Psychiatric Psychiatric exam: Present: normal affect - Skin Skin exam: Absent: rash
[2018-12-31 21:05] LABS: Albumin Level 3.2 gm/dL (3.4-5.0); Albumin/Globulin Ratio 0.8 (1.1-1.8); Anion Gap 14.4 mEq/L (5-15); Bilirubin,Total 0.2 mg/dL (0.2-1.0); Calcium 9.1 mg/dL (8.5-10.1); Globulin 3.9 gm/dl (1.3-3.2); Potassium 3.4 mmoL/L (3.5-5.1); Total Protein,Serum 7.1 gm/dL (6.4-8.2)
[2019-01-01 06:19] LABS: Basophils % 0.2 % (0.1-2.0); Eosinophils % 0.2 % (0.1-12.0); Hematocrit 51.4 % (42.0-52.0); Hemoglobin 16.8 g/dL (14.1-18.0); Lymphocytes % 12.6 % (10-50); Mean Corpuscular HGB Conc 32.6 g/dL (31.8-35.4); Mean Corpuscular Hemoglobin 33.7 pg (27.0-31.2); Mean Corpuscular Volume 103.5 fl (80-94); Mean Platelet Volume 8.7 fl (7.4-10.4); Monocytes # 0.1 K/mm3 (0.1-1.0); Neutrophils # 6.7 K/mm3 (1.8-7.8); Neutrophils % 85.9 % (37.0-80.0); Platelet Count 224 K/mm3 (142-424); Red Blood Count 4.97 M/mm3 (4.60-6.20); Red Cell Distribution Width 14.1 % (11.5-17.5); White Blood Count 7.8 K/mm3 (4.8-10.8)
[2019-01-01 06:39] LABS: Anion Gap 14.6 mEq/L (5-15); Calcium 9.1 mg/dL (8.5-10.1)
[2019-01-01 07:15] LABS: Potassium 4.6 mmoL/L (3.5-5.1)
[2019-01-01 10:18] LABS: Eosinophils % 2 % (0-3); Lymphocytes % 12 % (10-50); Macrocytosis 1+; Monocytes % 3 % (2-9); Neutrophils % 83 % (42-76); Total Cells Counted 100
--- NOTE | 2019-01-01 10:32 | Pharmacy Consult Notes ---
[facility] Pharmacy VTE Monitoring - Patient Demographics Admission date: 01/01/19 Report Date: 01/01/19 Time: 10:32 Allergies/Adverse Reactions: Patient Allergies amoxicillin [AMOXICILLIN] Allergy (Severe, Verified 11/25/17 12:49) FACIAL SWELLING ondansetron [From ZOFRAN ( HYDROCHLORIDE)] Allergy (Mild, Verified 11/25/17 12:49) RASH, ITCHING Penicillins Allergy (Mild, Verified 11/25/17 14:22) Hives Height: 1.8 m Weight: 111.697 kg Patient Problems: Current Active Problems Rib fracture (Acute) Fall (Acute) Blunt abdominal trauma (Acute) Elevated ETOH level (Acute) Obesity (BMI 30-39.9) (Acute) - VTE Risk Labs: VTE Related Lab Results Hgb 16.8 g/dL (14.1-18.0) 01/01/19 05:50 Hct 51.4 % (42.0-52.0) 01/01/19 05:50 Plt Count 224 K/mm3 (142-424) 01/01/19 05:50 BUN 20 mg/dL (7-18) H D 01/01/19 05:50 Creatinine 1.05 mg/dL (0.70-1.30) 01/01/19 05:50 Estimated Creat Clear 121 mL/min (50-200) 01/01/19 05:50 Was VTE Risk Assessment Performed: Yes VTE Score: 4 VTE Risk Level: Low Risk - Prophylaxis VTE Prophylaxis Ordered?: Yes Types of VTE Prophylaxis: TEDS Knee High Location of Applied Device: Bilateral Lower Extremeties - VTE Diagnosis Confirmed Treatment or plan recommended: Continue Current Treatment
--- NOTE | 2019-01-01 12:45 | Discharge Summary ---
General - General Admission date:: 01/01/19 Discharge date: 01/01/19 HPI HPI: 58 year old female presented to the ED for right rib pain following a fall yesterday. In the ED, his alcohol level was found to be elevated. CXR revealed rib fracture on the right. No pneumothorax or additional pathology. CT scan showed a 4.3 cm ascending aortic aneurysm which is new for him. Patient was admitted for observation. Hospital Course Hospital Course: Patient was admitted for observation. Saturations were normal through the night. Pain was fairly well controlled on Morphine. He was instructed on incentive spirometer use. He denies any shortness of breath and tolerated oral intake well. Discharge home on toradol x 3 days. Advised to use IS 5 times per hour while awake and refrain from ETOH use. FU in office in one week. Will need outpatient referral to CT surgery at [facility] for FU on AAA. Objective Vital signs: Temp Pulse Resp BP Pulse Ox 97.9 F 72 16 135/84 97 01/01/19 07:41 01/01/19 07:41 01/01/19 07:41 01/01/19 07:41 01/01/19 07:41 Narrative: Morbidly obese white male in NAD. Alert and oriented x3. Rate and rhythm regular. 1+ BLE edema. Lung sounds clear and equal bilaterally. Pain with deep inspiration, right lateral rib tenderness. Abdomen soft and nontender. Skin pink, warm and dry. ENT exam unremarkable. Results Labs on day of discharge: Labs from last 24 hours 01/01/19 01/01/19 12/31/18 05:50 05:50 20:45 WBC 7.8 RBC 4.97 Hgb 16.8 Hct 51.4 MCV 103.5 H MCH 33.7 H MCHC 32.6 RDW 14.1 Plt Count 224 MPV 8.7 Neut % (Auto) 85.9 H Lymph % (Auto) 12.6 [place] % (Auto) 1.0 L Eos % (Auto) 0.2 Baso % (Auto) 0.2 Neut # (Auto) 6.7 Lymph # (Auto) 1.0 [place] # (Auto) 0.1 Eos # (Auto) 0.0 Baso # (Auto) 0.0 Total Counted 100 Neutrophils % (Manual) 83 H Lymphocytes % (Manual) 12 Monocytes % (Manual) 3 Eosinophils % (Manual) 2 Platelet Estimate Normal Macrocytosis 1+ Sodium 139 139 Potassium 4.6 D 3.4 L Chloride 101 101 Carbon Dioxide 28 27 Anion Gap 14.6 14.4 BUN 20 H D 15 Creatinine 1.05 0.94 Estimated Creat Clear 121 143 Estimated GFR 73 82 Est GFR ( Amer) 88 100 Glucose 174 H D 98 Calcium 9.1 9.1 Total Bilirubin 0.2 AST 13 L ALT 21 Alkaline Phosphatase 86 Total Protein 7.1 Albumin 3.2 L Globulin 3.9 H Albumin/Globulin Ratio 0.8 L Amylase 57 Lipase 246 Plasma/Serum Alcohol 88 12/31/18 20:00 WBC 10.2 RBC 5.03 Hgb 16.8 Hct 51.5 MCV 102.5 H MCH 33.4 H MCHC 32.6 RDW 14.2 Plt Count 256 MPV 8.4 Neut % (Auto) 60.5 Lymph % (Auto) 29.8 [place] % (Auto) 5.1 Eos % (Auto) 4.2 Baso % (Auto) 0.4 Neut # (Auto) 6.2 Lymph # (Auto) 3.1 [place] # (Auto) 0.5 Eos # (Auto) 0.4 Baso # (Auto) 0.0 Total Counted Neutrophils % (Manual) Lymphocytes % (Manual) Monocytes % (Manual) Eosinophils % (Manual) Platelet Estimate Macrocytosis Sodium Potassium Chloride Carbon Dioxide Anion Gap BUN Creatinine Estimated Creat Clear Estimated GFR Est GFR ( Amer) Glucose Calcium Total Bilirubin AST ALT Alkaline Phosphatase Total Protein Albumin Globulin Albumin/Globulin Ratio Amylase Lipase Plasma/Serum Alcohol Discharge Plan - Patient Discharge Instructions ACTIVITY: Continue current activity DIET: continue same diet Additional Instructions: Nursing Diagnosis: Knowledge Deficit Disease/Condition Goal(s): Education of disease process Instruction(s): Follow provider plan/instructions (See attached discharge education) Follow/up with primary care provider as instructed in discharge packet Patient Instructions: DI for Rib Fracture - Follow up Plan Follow up with: Lulu Phillips APRN [Nurse Practitioner] - 1 week Disposition: Home, Self-Fpc Medications: Home Medications Medication Instructions Recorded Confirmed Type Allopurinol [Allopurinol 300mg 300 mg PO DAILY 11/25/17 01/01/19 History tablet] Duloxetine HCl [Cymbalta 30mg 30 mg PO BID 11/25/17 01/01/19 History capsule] Lansoprazole 30 mg PO DAILY 11/25/17 01/01/19 History Lisinopril/Hydrochlorothiazide 1 tab PO DAILY 11/25/17 01/01/19 History [Lisinopril-Hctz 10-12.5 mg Tab] Metoclopramide HCl [Metoclopramide 10 mg PO ACHS 11/25/17 01/01/19 History 10mg Tablet] Pregabalin [Lyrica 150mg Cap] 150 mg PO TID 11/25/17 01/01/19 History Ropinirole HCl 0.5 mg PO TID 11/25/17 01/01/19 History Sucralfate [Sucralfate 1gm 1 gm PO BID 11/25/17 01/01/19 History Tab] Ketorolac Tromethamine [Toradol 10 mg PO Q6HP PRN 3 Days #12 tablet 01/01/19 Rx 10mg tablet] Prescriptions/Medication Reconciliation: New Ketorolac Tromethamine [Toradol 10mg tablet] 10 mg PO Q6HP PRN 3 Days #12 tablet PRN Reason: Moderate To Severe Pain Continue Duloxetine HCl [Cymbalta 30mg capsule] 30 mg PO BID Ropinirole HCl 0.5 mg PO TID Lisinopril/Hydrochlorothiazide [Lisinopril-Hctz 10-12.5 mg Tab] 1 tab PO DAILY Metoclopramide HCl [Metoclopramide 10mg Tablet] 10 mg PO ACHS Pregabalin [Lyrica 150mg Cap] 150 mg PO TID Lansoprazole 30 mg PO DAILY Allopurinol [Allopurinol 300mg tablet] 300 mg PO DAILY Sucralfate [Sucralfate 1gm Tab] 1 gm PO BID Discontinued Meloxicam 15 mg PO DAILY
--- NOTE | 2019-01-01 12:51 | H&P/Discharge Summary ---
General - General Admission date:: 01/01/19 Discharge date: 01/01/19 *Admission Date: 01/01/19 *History of present illness: 58 year old female presented to the ED for right rib pain following a fall yesterday. In the ED, his alcohol level was found to be elevated. CXR revealed rib fracture on the right. No pneumothorax or additional pathology. CT scan showed a 4.3 cm ascending aortic aneurysm which is new for him. Patient was admitted for observation. [facility] History I have reviewed the patient's past medical history: Yes Medical History: Reports:: Hyperlipidemia, Hypertension, Nephritis (Episode of renal failure requiring hospitalization last summer) Denies:: Cancer, Diabetes Mellitus Type 1, Diabetes Mellitus Type 2, MRSA *Have you ever received a pneumonia vaccine?: Yes *Have you received a flu vaccine this season?: Yes Other Medical History: Reports: Arthritis Laterality Cases: Bilateral: Arthroscopy Knee, Arthroscopy Shoulder, Myringotomy (Ear Tubes), Tonsillectomy Other Surgeries: Yes: Cholecystectomy, Colonoscopy, EGD, Other (TOSILLECTOMY) Amputation: No Fractures: No - *Social History Educational Level: Attended High School Smoking Status: Current every day smoker Tobacco Type: cigarettes # Packs/Day (cigarettes): 1 Alcohol Intake: current Alcohol Intake Frequency:: other *Occupational Status:: disabled Housing: house Household Members: spouse, family *Travel in the last 8 weeks: None - Psychiatric History Expresses thoughts of harming self/others: None Suicide Plan Description: No Plan Family Hx:: Coronary Artery Disease, Diabetes, Hypertension, Stroke Review of Systems - Review of Systems Review of systems:: pertinent systems reviewed and negative unless documented below - *Respiratory Reports other Comments: rib pain on right - *Neurologic Denies headache(s), Denies seizure-like activity Exam Vital signs and Labs for Last 24 Hours: Temp Pulse Resp BP Pulse Ox 97.9 F 72 16 135/84 97 01/01/19 07:41 01/01/19 07:41 01/01/19 07:41 01/01/19 07:41 01/01/19 07:41 Laboratory Results - last 24 hr 12/31/18 20:00: WBC 10.2, RBC 5.03, Hgb 16.8, Hct 51.5, MCV 102.5 H, MCH 33.4 H, MCHC 32.6, RDW 14.2, Plt Count 256, MPV 8.4, Neut % (Auto) 60.5, Lymph % (Auto) 29.8, [place] % (Auto) 5.1, Eos % (Auto) 4.2, Baso % (Auto) 0.4, Neut # (Auto) 6.2, Lymph # (Auto) 3.1, [place] # (Auto) 0.5, Eos # (Auto) 0.4, Baso # (Auto) 0.0 12/31/18 20:45: Sodium 139, Potassium 3.4 L, Chloride 101, Carbon Dioxide 27, Anion Gap 14.4, BUN 15, Creatinine 0.94, Estimated Creat Clear 143, Estimated GFR 82, Est GFR ( Amer) 100, Glucose 98, Calcium 9.1, Total Bilirubin 0.2, AST 13 L, ALT 21, Alkaline Phosphatase 86, Total Protein 7.1, Albumin 3.2 L , Globulin 3.9 H, Albumin/Globulin Ratio 0.8 L, Amylase 57, Lipase 246, Plasma/Serum Alcohol 88 01/01/19 05:50: WBC 7.8, RBC 4.97, Hgb 16.8, Hct 51.4, MCV 103.5 H, MCH 33.7 H, MCHC 32.6, RDW 14.1, Plt Count 224, MPV 8.7, Neut % (Auto) 85.9 H, Lymph % (Auto) 12.6, [place] % (Auto) 1.0 L, Eos % (Auto) 0.2, Baso % (Auto) 0.2, Neut # (Auto) 6.7, Lymph # (Auto) 1.0, [place] # (Auto) 0.1, Eos # (Auto) 0.0, Baso # (Auto) 0.0, Total Counted 100, Neutrophils % (Manual) 83 H, Lymphocytes % (Manual) 12, Monocytes % (Manual) 3, Eosinophils % (Manual) 2, Platelet Estimate Normal, Macrocytosis 1+ 01/01/19 05:50: Sodium 139, Potassium 4.6 D, Chloride 101, Carbon Dioxide 28, Anion Gap 14.6, BUN 20 H D, Creatinine 1.05, Estimated Creat Clear 121, Estimated GFR 73, Est GFR ( Amer) 88, Glucose 174 H D, Calcium 9.1 I & O for Last 24 hours: Intake & Output 12/30/18 12/31/18 01/01/19 01/02/19 11:59 11:59 11:59 11:59 Intake Total 238 / 238 Balance 238 / 238 Weight 246 lb 4 oz Narrative: ALert and oriented x3. Rate and rhythm regular. 1+ BLE edema. Lung sounds clear and equal bilaterally. Abdomen soft and nontender. SKin pink, warm and dry. Right rib tenderness. ENT exam unremarkable Hospital Course Hospital Course: Patient was admitted for observation. Saturations were normal. Pain was fairly well controlled on Morphine. He was instructed on IS use. He did well through the night without SOA and tolerated oral intake well. Discharge home on toradol x 3 days. Advised to use IS 5 times per hour while awake and refrain from ETOH use. FU in office in one week. Will need referral to CT surgery at [facility] for FU on AAA. Results Labs on day of discharge: Labs from last 24 hours 01/01/19 01/01/19 12/31/18 05:50 05:50 20:45 WBC 7.8 RBC 4.97 Hgb 16.8 Hct 51.4 MCV 103.5 H MCH 33.7 H MCHC 32.6 RDW 14.1 Plt Count 224 MPV 8.7 Neut % (Auto) 85.9 H Lymph % (Auto) 12.6 [place] % (Auto) 1.0 L Eos % (Auto) 0.2 Baso % (Auto) 0.2 Neut # (Auto) 6.7 Lymph # (Auto) 1.0 [place] # (Auto) 0.1 Eos # (Auto) 0.0 Baso # (Auto) 0.0 Total Counted 100 Neutrophils % (Manual) 83 H Lymphocytes % (Manual) 12 Monocytes % (Manual) 3 Eosinophils % (Manual) 2 Platelet Estimate Normal Macrocytosis 1+ Sodium 139 139 Potassium 4.6 D 3.4 L Chloride 101 101 Carbon Dioxide 28 27 Anion Gap 14.6 14.4 BUN 20 H D 15 Creatinine 1.05 0.94 Estimated Creat Clear 121 143 Estimated GFR 73 82 Est GFR ( Amer) 88 100 Glucose 174 H D 98 Calcium 9.1 9.1 Total Bilirubin 0.2 AST 13 L ALT 21 Alkaline Phosphatase 86 Total Protein 7.1 Albumin 3.2 L Globulin 3.9 H Albumin/Globulin Ratio 0.8 L Amylase 57 Lipase 246 Plasma/Serum Alcohol 88 12/31/18 20:00 WBC 10.2 RBC 5.03 Hgb 16.8 Hct 51.5 MCV 102.5 H MCH 33.4 H MCHC 32.6 RDW 14.2 Plt Count 256 MPV 8.4 Neut % (Auto) 60.5 Lymph % (Auto) 29.8 [place] % (Auto) 5.1 Eos % (Auto) 4.2 Baso % (Auto) 0.4 Neut # (Auto) 6.2 Lymph # (Auto) 3.1 [place] # (Auto) 0.5 Eos # (Auto) 0.4 Baso # (Auto) 0.0 Total Counted Neutrophils % (Manual) Lymphocytes % (Manual) Monocytes % (Manual) Eosinophils % (Manual) Platelet Estimate Macrocytosis Sodium Potassium Chloride Carbon Dioxide Anion Gap BUN Creatinine Estimated Creat Clear Estimated GFR Est GFR ( Amer) Glucose Calcium Total Bilirubin AST ALT Alkaline Phosphatase Total Protein Albumin Globulin Albumin/Globulin Ratio Amylase Lipase Plasma/Serum Alcohol Discharge Medications - Medications for Discharge Home Medication List at Discharge: New Ketorolac Tromethamine [Toradol 10mg tablet] 10 mg PO Q6HP PRN 3 Days #12 tablet PRN Reason: Moderate To Severe Pain Continue Duloxetine HCl [Cymbalta 30mg capsule] 30 mg PO BID Ropinirole HCl 0.5 mg PO TID Lisinopril/Hydrochlorothiazide [Lisinopril-Hctz 10-12.5 mg Tab] 1 tab PO DAILY Metoclopramide HCl [Metoclopramide 10mg Tablet] 10 mg PO ACHS Pregabalin [Lyrica 150mg Cap] 150 mg PO TID Lansoprazole 30 mg PO DAILY Allopurinol [Allopurinol 300mg tablet] 300 mg PO DAILY Sucralfate [Sucralfate 1gm Tab] 1 gm PO BID Discontinued Meloxicam 15 mg PO DAILY Disposition Disposition: Home, Self-Care
== END 2019-01-01 12:55 | disposition home or self-care (01) ==
LOC: SUPCPDRO → 2ND 19:51 → ER 19:51 → 2ND 01-01 00:10
PROVIDERS: ADMIT Emergency Medicine; ATTEND Internal Medicine Adolescent Medicine
CPT/HCPCS: 36415; 70450; 71010; 71045; 71250; 72125; 72170; 74176; 80048; 80053; 82150; 83690; 85007; 85025; 96374; 96375; 99284; G0378; J2405

== ENCOUNTER → 2019-06-26 13:17 | Outpatient (CLI) | payer MEDICARE, SELFPAY ==
[2019-06-26 14:01] LABS: Basophils # 0.1 K/mm3 (0-0.2); Basophils % 0.4 % (0.1-2.0); Eosinophils # 0.6 K/mm3 (0.0-0.4); Eosinophils % 5.6 % (0.1-12.0); Hematocrit 51.6 % (42.0-52.0); Hemoglobin 16.6 g/dL (14.1-18.0); Lymphocytes # 3.2 K/mm3 (0.7-4.5); Lymphocytes % 27.8 % (10-50); Mean Corpuscular HGB Conc 32.3 g/dL (31.8-35.4); Mean Corpuscular Hemoglobin 33.6 pg (27.0-31.2); Mean Corpuscular Volume 104.1 fl (80-94); Mean Platelet Volume 8.7 fl (7.4-10.4); Monocytes # 0.6 K/mm3 (0.1-1.0); Monocytes % 4.9 % (1.7-9.3); Neutrophils # 7.1 K/mm3 (1.8-7.8); Neutrophils % 61.4 % (37.0-80.0); Platelet Count 252 K/mm3 (142-424); Red Blood Count 4.95 M/mm3 (4.60-6.20); Red Cell Distribution Width 13.7 % (11.5-17.5); White Blood Count 11.5 K/mm3 (4.8-10.8)
[2019-06-26 14:18] LABS: Albumin Level 3.6 gm/dL (3.4-5.0); Albumin/Globulin Ratio 1.1 (1.1-1.8); Chloride 101 mmol/L (98-107); Globulin 3.3 gm/dl (1.3-3.2); Glucose 96 mg/dL (74-106); Potassium 4.3 mmoL/L (3.5-5.1); Total Protein,Serum 6.9 gm/dL (6.4-8.2)
[2019-06-26 14:44] LABS: Alanine Aminotransferase 21 U/L (12-78); Alkaline Phosphatase 84 U/L (46-116); Anion Gap 13.3 mEq/L (5-15); Aspartate Amino Transferase 18 U/L (15-37); Bilirubin,Total 0.5 mg/dL (0.2-1.0); Blood Urea Nitrogen 24 mg/dL (7-18); Calcium 9.6 mg/dL (8.5-10.1); Carbon Dioxide 31 mmol/L (21.0-32.0); Creatinine,Serum 1.36 mg/dL (0.70-1.30); Estimated Glomerular Filt Rate 54 ml/min (>60); GFR (African American) 65 ML/MIN (>60); Sodium 141 mmol/L (136-145); Thyroid Stimulating Hormone 0.76 uIU/ml (0.358-3.740)
[2019-06-29 14:23] LABS: Vitamin B12 393 pg/mL (232-1245); Vitamin D 25 Hydroxy 20.9 ng/mL (30.0-100.0)
== END ==
PROVIDERS: Visit Provider Internal Medicine Adolescent Medicine
DX: G60.9 Hereditary and idiopathic neuropathy, unspecified (principal); E55.9 Vitamin D deficiency, unspecified
CPT/HCPCS: 36415; 80053; 82607; 82652; 84443; 85025

== ENCOUNTER → 2019-07-10 15:19 | Outpatient (CLI) | payer MEDICARE, SELFPAY ==
[2019-07-10 16:15] LABS: Basophils # 0.1 K/mm3 (0-0.2); Basophils % 0.7 % (0.1-2.0); Eosinophils # 0.1 K/mm3 (0.0-0.4); Eosinophils % 1.2 % (0.1-12.0); Hemoglobin 14.7 g/dL (14.1-18.0); Mean Corpuscular HGB Conc 32.6 g/dL (31.8-35.4); Mean Corpuscular Hemoglobin 34.6 pg (27.0-31.2); Mean Corpuscular Volume 106.3 fl (80-94); Mean Platelet Volume 8.6 fl (7.4-10.4); Monocytes # 0.6 K/mm3 (0.1-1.0); Monocytes % 6.6 % (1.7-9.3); Neutrophils # 6.1 K/mm3 (1.8-7.8); Neutrophils % 68.5 % (37.0-80.0); Platelet Count 216 K/mm3 (142-424); Red Blood Count 4.23 M/mm3 (4.60-6.20); Red Cell Distribution Width 14.2 % (11.5-17.5); White Blood Count 8.9 K/mm3 (4.8-10.8)
[2019-07-10 17:23] LABS: Erythrocyte Sedimentation Rate 13 mm/hr (0-20)
[2019-07-10 17:45] LABS: Alanine Aminotransferase 19 U/L (12-78); Albumin Level 3.1 gm/dL (3.4-5.0); Alkaline Phosphatase 79 U/L (46-116); Anion Gap 9.4 mEq/L (5-15); Aspartate Amino Transferase 17 U/L (15-37); Bilirubin,Total 0.3 mg/dL (0.2-1.0); Blood Urea Nitrogen 22 mg/dL (7-18); C-Reactive Protein 0.8 mg/dL (0.0-0.9); Carbon Dioxide 33 mmol/L (21.0-32.0); Chloride 105 mmol/L (98-107); Creatinine,Serum 1.09 mg/dL (0.70-1.30); Estimated Glomerular Filt Rate 69 ml/min (>60); GFR (African American) 84 ML/MIN (>60); Glucose 76 mg/dL (74-106); Potassium 4.4 mmoL/L (3.5-5.1); Sodium 143 mmol/L (136-145); Total Protein,Serum 6.1 gm/dL (6.4-8.2)
== END ==
PROVIDERS: Visit Provider Internal Medicine Adolescent Medicine
DX: M75.102 Unspecified rotator cuff tear or rupture of left shoulder, not specified as traumatic (principal); Z01.818 Encounter for other preprocedural examination
CPT/HCPCS: 36415; 80053; 85025; 85651; 86140

== ENCOUNTER → 2019-07-29 14:57 | Outpatient (CLI) | payer MEDICARE, SELFPAY | PROVIDERS: PCP Internal Medicine Adolescent Medicine; Visit Provider Internal Medicine Adolescent Medicine | DX: M75.102 Unspecified rotator cuff tear or rupture of left shoulder, not specified as traumatic (principal); M25.512 Pain in left shoulder ==

== ENCOUNTER → 2019-08-25 08:38 | Outpatient (CLI) | payer MEDICARE, SELFPAY ==
--- NOTE | 2019-08-25 08:42 | XR_ITS ---
PROCEDURE: XR SHOULDER LT MIN 2V CLINICAL INDICATION: left shoulder pain COMPARISON: XR SHOULDER LT MIN 2V from 07/04/2019 FINDINGS: Mild osteoarthritic change of the acromioclavicular joint and glenohumeral joint. Multiple anchors are present over the humeral head. Minimal amount of calcification noted along the lateral aspect the humeral head possibly related to calcific tendinitis. There is mild subacromial stenosis. IMPRESSION: Overall no change in the osteoarthritic and postsurgical changes Dictated by: Harpal Holguin MD 08/25/2019 13:10 Electronically signed by Harpal Holguin MD in [place] 08/25/2019 13:10
== END ==
PROVIDERS: PCP Internal Medicine Adolescent Medicine; Visit Provider Orthopaedic Surgery
DX: M25.512 Pain in left shoulder (principal)
CPT/HCPCS: 73030

== ENCOUNTER 2019-08-25 10:20 | Outpatient (RCR) | payer MEDICARE, SELFPAY | END 2019-08-25 10:45 | disposition home or self-care (01) | LOC: OT 10:20 | PROVIDERS: Visit Provider Orthopaedic Surgery | DX: G56.02 Carpal tunnel syndrome, left upper limb (principal) | CPT/HCPCS: 97763 ==

== ENCOUNTER → 2019-10-05 10:47 | Outpatient (POV) | payer MEDICARE, SELFPAY | PROVIDERS: Visit Provider Specialist | DX: M79.602 Pain in left arm (principal); M79.601 Pain in right arm; R20.2 Paresthesia of skin | CPT/HCPCS: 95886; 95910 ==